=== PATIENT | female | born 1985 | race African-American/Black ===

== ENCOUNTER → 2019-04-04 | Outpatient (CLI) | payer BC | LOC: MC.RAD 13:44 | DX: N63.21 Unspecified lump in the left breast, upper outer quadrant (principal); N64.52 Nipple discharge ==

== ENCOUNTER → 2022-03-18 | Outpatient (CLI) | payer BC | LOC: MC.RAD 14:39 | DX: N64.4 Mastodynia (principal) ==

== ENCOUNTER 2023-07-19 04:05 | Inpatient (IN) | payer BC ==
[2023-07-19] VITALS (30 sets, daily range): BP systolic 97–136; BP diastolic 54–72; PULSE 65–95; TEMP 97.5–98.2
[~2023-07-19] VITALS: Ht 170.2 cm; Wt 91.7 kg
--- NOTE | 2023-07-19 04:15 | NUR ---
Ambulatory to unit for labor assessment, accompanied by spouse. Shown to room by nutrition tech while this RN reviews record. Oriented to room, monitor, plan of care by this RN. Denies LOF or vaginal bleeding. perineum noted to be moist prior to SVE. Due to pt's high risk history, Physician notified of pt's presence and ROM possible 2 days prior. See Physician Notification 07/19/2023 [id number].
--- NOTE | 2023-07-19 06:15 | NUR ---
DIFFICULTY TRACING FHT DURING THIS TIME. FEW CX. CX INTERRUPTED BY CHANGING PAPER.
[2023-07-19 06:17] LABS: BASO # 0.1 K/mm3 (0.0-0.2); BASO % 0.6 % (0.0-2.0); EOS # 0.1 K/mm3 (0.0-0.7); EOS % 1.5 % (0.0-4.0); GRAN # 5.6 K/mm3 (1.4-6.5); HEMOGLOBIN 12.6 g/dl (12.5-16.0); LYMPH # 1.2 K/mm3 (1.2-3.4); LYMPH % 15.6 % (20.0-51.0); MEAN CELL VOLUME 89 fl (80.0-100.0); MEAN CORPUSCULAR HEMOGLOBIN 30 pg (27-31); MEAN CORPUSCULAR HGB CONC 34 g/dl (33.0-37.0); MEAN PLATELET VOLUME 11.8 fl (7.4-10.4); MONO # 0.8 K/mm3 (0.1-0.6); MONO % 9.7 % (1.7-9.3); PLATELET COUNT 250 K/mm3 (130-400); RED BLOOD COUNT 4.17 M/mm3 (4.10-5.30); REDCELL DISTRIBUTION WIDTH-CV 13.2 % (11.5-14.5)
--- NOTE | 2023-07-19 08:30 | NUR ---
PT WAS HAVING VARIABLES WITH EACH CX. PT WAS SF AND TURNED TO THE LEFT LATERAL, FHT IMMEDIATELY DECELED TO 80'S. SO WE IMMEDIATELY TURNED TO RIGHT LATERAL AND FHT IMPROVED.
--- NOTE | 2023-07-19 15:36 | NUR ---
1206- CALLED DR CORDERO PT FELT A GUSH THAT WAS BLOOD. SVE /-1. DR CORDERO SAID THAT SHE WAS ON HER WAY. 1217- DR CORDERO AT BEDSIDE. 1218- DR CORDERO SVE 9CM AND FELT A BULGING BAG. AROM WITH MEC STAINED FLUID NOT SEEN BEFORE. 1322- PT COMPLETE. 1324- PT BEGAN PUSHING WITH CX. 1335- SPONTANEOUS VAGINAL DELIVERY OF A VIABLE MALE INFANT. NUCHAL X1. WAS COVERED IN BLOOD, CLEANED BY DR CORDERO. PLACED ON MOM'S ABDOMIN AND CLEANED, CARE OF RESUMED BY NURSERY NURSE AMARA. FOB DECLINED TO CUT CORD, DR CORDERO CUT THE CORD. CORD GASES OBTAINED DUE TO HEAVY MEC. 1340- SONTANEOUS DELIVERY OF PARTIAL PLACENTA. PART OF THE PLACENTA WAS RETAINED. DR CORDERO DECIDED TO GO TO OR FOR RETAINED PLACENTA. EBL 700. 1343- CALLED [facility] FOR THE [facility] IN THE OR. 1345- DR CORDERO REPAIRED PERINEAL LACERATION. 1400- PT IN OR STARTING ANESTHESIA. 1409- SURGERY STARTED. 1420- SURGERY COMPLETED. EBL 300. 1440- PT BACK IN LABOR ROOM RECOVERING. PLACENTA AND DNC REMNANTS SENT TO PATHOLOGY.
[2023-07-20 00:32] VITALS: BP 103/38; PULSE 75; TEMP 98.6
[2023-07-20] MEDS ORDERED: MOTRIN 800800 MG/TAB PO (07:23)
[2023-07-20 08:00] VITALS: BP 110/43; PULSE 77; TEMP 97.5
--- NOTE | 2023-07-20 08:38 | NUR ---
Initial visit attempt; Nurse with family. [employer] Operator left card offering congratulations for the of their son and information regarding the availability of Spiritual Care at our hospital.
--- NOTE | 2023-07-20 15:45 | NUR ---
DISCHARGE EDCUATION COMPLETED. HEALTH HISTORY GIVEN. NOTIFIED OF NEED TO CALL [facility] AND MAKE 6 WEEK FOLLOW UP APPOINTMENT.
== END 2023-07-20 16:00 | disposition home or self-care (01) | DRG 797 ==
LOC: LDRO 04:05 → LDR 04:35 → OB 18:00
PROVIDERS: Obstetrics & Gynecology; ADMIT Obstetrics & Gynecology
PROC: 10E0XZZ Delivery of Products of Conception, External Approach (ICD-10-PCS; principal; 2023-07-19)
PROC: 10D17ZZ Extraction of Products of Conception, Retained, Via Natural or Artificial Opening (ICD-10-PCS; 2023-07-19)
PROC: 0KQM0ZZ Repair Perineum Muscle, Open Approach (ICD-10-PCS; 2023-07-19)
DX: O99.824 Streptococcus B carrier state complicating childbirth (principal); B19.10 Unspecified viral hepatitis B without hepatic coma; Z37.0 Single live birth; O98.42 Viral hepatitis complicating childbirth; O72.2 Delayed and secondary postpartum hemorrhage; O70.1 Second degree perineal laceration during delivery; O24.420 Gestational diabetes mellitus in childbirth, diet controlled; O77.0 Labor and delivery complicated by meconium in amniotic fluid; Z3A.38 38 weeks gestation of pregnancy
CPT/HCPCS: J2405; J2540; J2590; J2704; J3010; J7120